=== PATIENT | male | born 1975 | race Caucasian/White ===

== ENCOUNTER → 2017-04-04 | Outpatient (CLI) | payer OTHER ==
--- NOTE | 2017-04-04 12:29 | RAD ---
AP and lateral views lumbar spine 04/04/2017 Indication: Worsening chronic low back pain Comparison study: None Discussion: There is no evidence of acute fracture or alignment abnormality is identified. Vertebral body heights are maintained. No evidence of spondylolysis or spondylolisthesis is seen. There is a rotolevoscoliosis of the lumbar spine. Mild degenerative disc space narrowing seen throughout the lumbar spine. There appears to be facet arthrosis involving the inferior lumbar spine. Possible shortening of the pedicles is seen at L5. Spinal stenosis cannot be excluded. Impression: 1.No evidence of acute osseous abnormality 2. Rotolevoscoliosis of the lumbar spine with mild associated degenerative changes. 3. Possible shortening of the pedicles of L5. Given other changes spinal stenosis cannot be excluded. Correlate with clinical exam findings and consider MRI for further evaluation as clinically indicated.
== END | disposition home or self-care (01) ==
LOC: RAD 09:39
PROVIDERS: ATTEND Neuromusculoskeletal Medicine, Sports Medicine
DX: M51.36 Other intervertebral disc degeneration, lumbar region (principal)
CPT/HCPCS: 72100

== ENCOUNTER → 2018-10-25 | Outpatient (CLI) | payer MEDICARE ==
--- NOTE | 2018-10-25 14:56 | [facility] ---
MRI of the brain without contrast 10/25/2018 Clinical History: Essential tremors. Memory loss. Technique: Unenhanced T1-weighted sagittal and axial, T2-weighted axial and coronal and FLAIR, gradient echo and diffusion-weighted axial images of the brain were obtained. Findings: The ventricles and sulci are within normal limits in size and configuration. Patchy and several small scattered areas of increased signal intensity are seen within the periventricular and subcortical white matter of both cerebral hemispheres on the FLAIR and T2-weighted images. These have a nonspecific MRI appearance but are felt to most likely reflect areas of minimal small vessel ischemic disease. No acute parenchymal abnormality is seen. No extra-axial fluid collection is seen. There is no MRI evidence of acute ischemia/infarction. Mild mucosal thickening is seen scattered throughout the paranasal sinuses. Normal flow voids are seen within the major vascular structures surrounding the brain parenchyma. Impression: No acute parenchymal abnormality is seen. Electronically signed by: Jesus Barber MD (10/25/2018 2:54 PM) [id number]
== END | disposition home or self-care (01) ==
LOC: KCIC MRI 10:32
PROVIDERS: ATTEND Psychiatry & Neurology Neurology with Special Qualifications in Child Neurology
DX: J34.89 Other specified disorders of nose and nasal sinuses (principal); R90.82 White matter disease, unspecified; G25.0 Essential tremor; C81.90 Hodgkin lymphoma, unspecified, unspecified site
CPT/HCPCS: 70551